=== PATIENT | male | born 1955 | race African-American/Black ===

== ENCOUNTER 2020-12-25 14:22 | Observation (INO) | payer MEDICARE, MEDICAID, SELFPAY ==
[~2020-12-25] VITALS: Ht 170.2 cm; Wt 57.6 kg
--- NOTE | 2020-12-25 14:22 | NUR ---
Patient BIBA BLS, transferred to bed 9. RN evaluating the patient at bedside.
--- NOTE | 2020-12-25 14:28 | NUR ---
RECIEVED IN BED 9, PATIENT BROUGHT IN BY EMS, IV ACCESS OBTAINED ON ARRIVAL, LABS DRAWN AND LABELED. PLACED ON ASSISTANT CHIEF NURSING OFFICER SHOWING SINUS RHYTHM, VS STABLE AT THIS TIME. PATIENT IS CACHECTIC, SKIN DRY AND SCALING, BUT INTACT. PATIENT IS QUIETLY VERBAL, STATES [place] FAMILY OF 5. PATIENT ENDORSES DIABETES, NO MEDICAL CARE, BS PER MEDIC RESULT IS TOO HIGH TO READ. ON FURTHER ASSESSMENT, BREATH SOUNDS ARE CLEAR, UNLABORED, RATE IS 12. ABDOMEN IS FLAT, FIRM TO TOUCH, ACTIVE BOWEL SOUNDS X 4. MAKES EYE CONTACT BUT QUICKLY AVERTS EYES. DIRECTOR OF HEALTH EDUCATION AND PUSHES ARE PRESENT BUT MINIMAL EFFORT. HYGIENE WNL FOR HOMELESS STATE. PATIENT DOES NOT RECALL LAST TIME HE ATE, C/O ABDOMINAL PAIN TODAY.
[2020-12-25 14:36] VITALS: BP 116/79
--- NOTE | 2020-12-25 14:45 | NUR ---
labs collected and sent to lab
[2020-12-25] MEDS ORDERED: NACL 0.9% 500 ML IV ONE (15:15)
[2020-12-25 15:30] LABS: BASOPHILS % (AUTO) 0.6 % (0.0-2.0); EOSINOPHILS # (AUTO) 0.1 K/uL (0-0.4); EOSINOPHILS % (AUTO) 1.5 % (0.0-4.0); HEMATOCRIT 42.5 % (36-52); HEMOGLOBIN 13.7 g/dL (12.0-18.0); LYMPHOCYTES # (AUTO) 0.4 K/uL (2.0-11.5); LYMPHOCYTES % (AUTO) 8.3 % (20.5-51.1); MEAN CORPUSCULAR HEMOGLOBIN 31 pg (27-31); MEAN CORPUSCULAR HGB CONC 32 g/dL (33-37); MEAN CORPUSCULAR VOLUME 96.6 fL (80-94); MONOCYTES # (AUTO) 0.3 K/uL (0.8-1.0); NEUTROPHILS # (AUTO) 4.1 K/uL (1.8-7.7); NEUTROPHILS % (AUTO) 82.6 % (42.2-75.2); PLATELET COUNT (AUTO) 250 K/uL (140-450); RED CELL DISTRIBUTION WIDTH 14.4 % (11.6-13.7)
--- NOTE | 2020-12-25 15:53 | NUR ---
rad at bedside
--- NOTE | 2020-12-25 15:57 | NUR ---
ekg being performed at bedside
--- NOTE | 2020-12-25 16:28 | NUR ---
called lab to find out why cmp is not inputed yet
[2020-12-25 16:38] LABS: ACETONE, SERUM NEGATIVE (NEGATIVE)
[2020-12-25 16:45] LABS: ALBUMIN 3.1 g/dL (3.4-5.0); ANION GAP 14.4 (8-16); ASPARTATE AMINOTRANSFERASE 29 U/L (15-37); CARBON DIOXIDE 27.5 mmol/L (21-32); CHLORIDE 97 mmol/L (98-107); CREATININE 1.5 mg/dL (0.6-1.3); GFR ARICAN-AMERICAN 60 mL/min (>90); POTASSIUM 4.9 mmol/L (3.5-5.1); SODIUM SERUM 134 mmol/L (136-145); TOTAL BILIRUBIN 0.5 mg/dL (0.0-1.0); UREA NITROGEN, BLOOD 24 mg/dL (7-18)
[2020-12-25 16:48] LABS: GLUCOSE 777 mg/dL (74-106)
[2020-12-25] MEDS ORDERED: INSULIN REGULAR, HUMAN 100 UNIT/ML VIAL IVP ONE ×2 (16:50→18:55)
[2020-12-25] MEDS ORDERED: NACL 0.9% 1,000 ML IV ONE (17:10)
--- NOTE | 2020-12-25 17:14 | NUR ---
PT GIVEN SANDWICH, SUGAR FREE JELLO, AND WATER AFTER ERMD APPROVAL.
--- NOTE | 2020-12-25 18:06 | NUR ---
LAB AT BEDSIDE
[2020-12-25] MEDS ORDERED: ASPIRIN 81 MG TAB.CHEW PO ONE (19:10)
--- NOTE | 2020-12-25 19:20 | NUR ---
report given to LISETH Carter. Transfer of care at this time.
--- NOTE | 2020-12-25 19:27 | NUR ---
Report received from LISETH Nixon. Transfer of care at this time.
--- NOTE | 2020-12-25 19:53 | NUR ---
Re-checked blood sugar prior to giving insulin. BS via fingerstick 533.
[2020-12-25] MEDS ORDERED: ACETAMINOPHEN 325 MG TAB PO PRN (20:20)
[2020-12-25] MEDS ORDERED: MAG SULF 2000 MG/WATER PREMIX 50 ML IV PRN (20:20)
[2020-12-25] MEDS: NACL 0.9% 1,000 ML IV SCH (20:20)
[2020-12-25] MEDS ORDERED: ONDANSETRON 4 MG/2 ML VIAL IVP PRN (20:20)
[2020-12-25] MEDS ORDERED: MAGNESIUM OXIDE 400 MG TAB PO PRN (20:20)
[2020-12-25] MEDS ORDERED: POTASSIUM CHLORIDE 10 MEQ TABER PO PRN (20:20)
[2020-12-25] MEDS ORDERED: KCL 20 MEQ/WATER INJ PREMIX 200 ML IV PRN (20:20)
[2020-12-25] MEDS ORDERED: DEXTROSE 50% 50 ML SYR IVP PRN (20:20)
[2020-12-25] MEDS: BLOOD GLUCOSE MONITORING 1 DEV DEV FS SCH (21:00)
--- NOTE | 2020-12-25 21:04 | NUR ---
RAPID COVID TEST (NELL) SENT TO LAB
--- NOTE | 2020-12-25 21:45 | NUR ---
Blood sugar checked. bs=86
--- NOTE | 2020-12-25 22:07 | NUR ---
Report given to María
--- NOTE | 2020-12-25 23:10 | NUR ---
RECEIVED PT AAOX4 FROM ER / LEATHA . NID - O2 SAT WNL - RA . ON TELE MONITOR . IV CANNULA DISLOGED / OUT - ER NURSE WILL RE INSERT IT . WALKS TO BED W/ 1 PERSON ASSIST - FALL RISK . SAFETY MEASURES IN PLACE URINAL / CALL LIGHT WITHIN REACH . POC DISCUSSED AND VERBALIZE UNDERSTANDING . WILL CONT. TO MONITOR
--- NOTE | 2020-12-25 23:50 | NUR ---
Patient will be admitted to care of Dr. Ramos. Admited to Tele unit. Will go to room 120-A. Belongings list completed. Report to María CHILDERS.
--- NOTE | 2020-12-26 | NUR ---
ACCU CHECK - 201 . NO S/SX OF ACUTE DISTRESS NOTED - SR ON TELE MONITOR .
--- NOTE | 2020-12-26 02:00 | NUR ---
WATCHING TV NO COMPLAIN MADE .
[2020-12-26 04:00] VITALS: BP 140/90
[2020-12-26] MEDS: INSULIN LISPRO SLIDING SCALE 100 UNITS/ML VIAL SUBQ PRN ×2 (06:27→11:38)
[2020-12-26] MEDS: BLOOD GLUCOSE MONITORING 1 DEV DEV FS SCH ×4 (06:27→21:32)
--- NOTE | 2020-12-26 06:29 | NUR ---
ACCU CHECK 587 - 10 U HUMALOG / SQ GIVEN - WILL REFER TO DR COCHRAN . NO COMPLAIN MADE.
--- NOTE | 2020-12-26 07:10 | NUR ---
PAGED DR Kaden COCHRAN ABOUT ACCU CHECK 587 - WILL ENDORSE .
--- NOTE | 2020-12-26 07:30 | NUR ---
ENDORSED - PT - STABLE . I TOLD TO AM NURSE SHE HAVE TO WAIT THE CALL BACK OF DR Kaden COCHRAN FOR ACCU CHECK [address] Kaden RODRIGUEZ AND CHERRY IS HIGH - NO URINE EXAM ORDERED . Addendum: 12/26/20 at 0757 by María Morris RN INFORM CHARGE NURSE JERROD - TROPONIN - AND THE [id number] RPT BY DR. COCHRAN IS 8 :20 PM - NO CARDIO CONSULT YET .
[2020-12-26 08:00] VITALS: BP_SYST 135; BP_SYST 144; BP_DIAS 87; BP_DIAS 96
[2020-12-26 08:00] LABS: BASOPHILS # (AUTO) 0.1 K/uL (0.00-0.22); BASOPHILS % (AUTO) 1.5 % (0.0-2.0); EOSINOPHILS # (AUTO) 0.4 K/uL (0-0.4); EOSINOPHILS % (AUTO) 9.5 % (0.0-4.0); HEMATOCRIT 35.9 % (36-52); HEMOGLOBIN 11.9 g/dL (12.0-18.0); LYMPHOCYTES # (AUTO) 0.6 K/uL (2.0-11.5); MEAN CORPUSCULAR HEMOGLOBIN 32 pg (27-31); MEAN CORPUSCULAR HGB CONC 33 g/dL (33-37); MEAN CORPUSCULAR VOLUME 94.9 fL (80-94); MONOCYTES # (AUTO) 0.3 K/uL (0.8-1.0); MONOCYTES % (AUTO) 7.9 % (1.7-9.3); NEUTROPHILS % (AUTO) 68.1 % (42.2-75.2); PLATELET COUNT (AUTO) 207 K/uL (140-450); RED BLOOD CELL COUNT(AUTO) 3.79 MIL/uL (4.20-6.10); RED CELL DISTRIBUTION WIDTH 14.2 % (11.6-13.7); WHITE BLOOD COUNT (AUTO) 4.4 K/uL (4.8-10.8)
[2020-12-26 08:02] LABS: MAGNESIUM 1.7 mg/dL (1.8-2.4)
[2020-12-26 08:03] LABS: ANION GAP 11.9 (8-16); CARBON DIOXIDE 23.7 mmol/L (21-32); CREATININE 1.4 mg/dL (0.6-1.3); POTASSIUM 4.6 mmol/L (3.5-5.1)
--- NOTE | 2020-12-26 08:19 | NUR ---
PATIENT HAS BEEN SCREENED AND CATEGORIZED LOW NUTRITION RISK. PATIENT WILL BE SEEN WITHIN 7 DAYS OF ADMISSION. 01/01/[address]
--- NOTE | 2020-12-26 08:25 | NUR ---
assessment complete plan of care reviewed. dr craig messaged for abnormal labs awaiting a return call, will continue to monitor and assess
[2020-12-26] MEDS: NACL 0.9% 1,000 ML IV SCH ×2 (09:19→21:35)
[2020-12-26] MEDS ORDERED: LORazepam 2 MG/ML VIAL IVP PRN (09:20)
[2020-12-26] MEDS: ENOXAPARIN 40 MG/0.4 ML SYR SUBQ SCH (09:21)
--- NOTE | 2020-12-26 11:44 | NUR ---
BLOOD GLUCOSE 487MG/DL MD MESSAGED AWAITING A RETURN CALL 10 UNITS GIVEN SQ CALL LIGHT IN REACH WILL CONTINUE TO MONITOR AND ASSESS
[2020-12-26 12:00] VITALS: BP 141/83
[2020-12-26] MEDS ORDERED: INSULIN LANTUS 100 UNITS/ML 10 ML VIAL SUBQ SCH (13:00)
--- NOTE | 2020-12-26 13:01 | NUR ---
CALLED BACK WITH NEW ORDERS TO GIVE FIRST DOSE OF LANTUS NOW, PHARMACY MADE AWRE NOTED AND WILL CARRY OUT, WILL CONTINUE TO MONITOR AND ASSESS
[2020-12-26 16:22] VITALS: BP 128/75
--- NOTE | 2020-12-26 17:47 | NUR ---
NO SIGNIFICANT CHANGES NOTED AT THIS TIME ALL NEEDS ANTICIPATED AND MET BY STAFF NO ACUTE DISTRESS NOTED AT THIS TIEM
[2020-12-26 20:00] VITALS: BP 129/78
[2020-12-26] MEDS: ZOLPIDEM 5 MG TAB PO PRN (21:34)
--- NOTE | 2020-12-26 22:16 | NUR ---
Assumed care. A/O x4. Presently blood glucose = 452. Dr. Watts contacted to be notified. Had communication with the exchange service. Awaiting call return.
[2020-12-26] MEDS ORDERED: INSULIN LISPRO 100 UNITS/ML VIAL SUBQ SCH (22:55)
[2020-12-27] VITALS: BP 134/85
--- NOTE | 2020-12-27 03:42 | NUR ---
A/O x 4. Each time he wakes up he is hungry. He keeps on asking for snacks here and there. Will continue to monitor.
[2020-12-27 04:00] VITALS: BP 116/75
[2020-12-27] MEDS: INSULIN LISPRO SLIDING SCALE 100 UNITS/ML VIAL SUBQ PRN ×4 (07:10→22:07)
[2020-12-27] MEDS: BLOOD GLUCOSE MONITORING 1 DEV DEV FS SCH ×4 (07:14→21:00)
[2020-12-27 07:45] LABS: ANION GAP 9.3 (8-16); CREATININE 1.1 mg/dL (0.6-1.3); POTASSIUM 4.3 mmol/L (3.5-5.1)
[2020-12-27 07:46] LABS: BASOPHILS # (AUTO) 0.1 K/uL (0.00-0.22); BASOPHILS % (AUTO) 1.3 % (0.0-2.0); EOSINOPHILS # (AUTO) 0.4 K/uL (0-0.4); HEMATOCRIT 31.3 % (36-52); HEMOGLOBIN 10.6 g/dL (12.0-18.0); LYMPHOCYTES # (AUTO) 0.9 K/uL (2.0-11.5); LYMPHOCYTES % (AUTO) 18.1 % (20.5-51.1); MEAN CORPUSCULAR HEMOGLOBIN 32 pg (27-31); MEAN CORPUSCULAR HGB CONC 34 g/dL (33-37); MEAN CORPUSCULAR VOLUME 94.9 fL (80-94); MONOCYTES # (AUTO) 0.4 K/uL (0.8-1.0); NEUTROPHILS # (AUTO) 3.1 K/uL (1.8-7.7); NEUTROPHILS % (AUTO) 63.6 % (42.2-75.2); PLATELET COUNT (AUTO) 178 K/uL (140-450); RED CELL DISTRIBUTION WIDTH 14.3 % (11.6-13.7); WHITE BLOOD COUNT (AUTO) 4.9 K/uL (4.8-10.8)
[2020-12-27 08:00] VITALS: BP 125/73
[2020-12-27] MEDS ORDERED: INSULIN LANTUS 100 UNITS/ML 10 ML VIAL SUBQ SCH (09:00)
[2020-12-27] MEDS: ENOXAPARIN 40 MG/0.4 ML SYR SUBQ SCH (09:37)
[2020-12-27] MEDS: NACL 0.9% 1,000 ML IV SCH ×3 (10:28→22:37)
[2020-12-27 12:00] VITALS: BP 143/84
--- NOTE | 2020-12-27 12:38 | NUR ---
[facility] REFERRAL FOR UNCONTROLLED DIABETES MELLITUS RECEIVED ON 12/27/20. PATIENT HAS BEEN RE-SCREENED BY RD PER HOSPITAL POLICY CRITERIA. PATIENT HAS BEEN RE-CATEGORIZED MODERATE NUTRITION RISK. PATIENT WILL BE SEEN WITHIN 3-5 DAYS OF ADMISSION. 12/28/20 - 12/30/20 JOVITA PERRIN MBA, RD
[2020-12-27 16:00] VITALS: BP 138/76
--- NOTE | 2020-12-27 18:26 | NUR ---
PATIENT EDUCATION PROVIDED CONCERNING DIET AND DIABETES. PATIENT CONTINUOUSLY ASKING FOR SNACKS DESPITE DIET EDUCATION. PATIENT NEEDS FREQUENT REINFORCEMENT.
--- NOTE | 2020-12-27 19:41 | NUR ---
Assumed care. A/O x 4. Has just had dinner, but he wants a snack already. We shall be giving him something in a little while . IV fluids infusing at 80mls/hr. Uses a urinal. Bed in low position. Call light within reach.
[2020-12-27 20:00] VITALS: BP 133/78
[2020-12-27] MEDS: ZOLPIDEM 5 MG TAB PO PRN (22:06)
[2020-12-28] VITALS: BP 114/59
[2020-12-28 04:00] VITALS: BP 156/59
[2020-12-28] MEDS: BLOOD GLUCOSE MONITORING 1 DEV DEV FS SCH ×3 (06:40→16:55)
[2020-12-28] MEDS: INSULIN LISPRO SLIDING SCALE 100 UNITS/ML VIAL SUBQ PRN ×3 (06:41→16:56)
[2020-12-28 07:03] LABS: BASOPHILS % (AUTO) 0.7 % (0.0-2.0); EOSINOPHILS # (AUTO) 0.3 K/uL (0-0.4); EOSINOPHILS % (AUTO) 8.1 % (0.0-4.0); HEMATOCRIT 33.4 % (36-52); HEMOGLOBIN 11.1 g/dL (12.0-18.0); LYMPHOCYTES # (AUTO) 0.8 K/uL (2.0-11.5); LYMPHOCYTES % (AUTO) 20.2 % (20.5-51.1); MEAN CORPUSCULAR HEMOGLOBIN 31 pg (27-31); MEAN CORPUSCULAR HGB CONC 33 g/dL (33-37); MEAN CORPUSCULAR VOLUME 94.1 fL (80-94); MONOCYTES # (AUTO) 0.5 K/uL (0.8-1.0); MONOCYTES % (AUTO) 13.4 % (1.7-9.3); NEUTROPHILS # (AUTO) 2.3 K/uL (1.8-7.7); NEUTROPHILS % (AUTO) 57.6 % (42.2-75.2); PLATELET COUNT (AUTO) 179 K/uL (140-450); RED BLOOD CELL COUNT(AUTO) 3.55 MIL/uL (4.20-6.10); RED CELL DISTRIBUTION WIDTH 14.2 % (11.6-13.7)
[2020-12-28 07:08] LABS: ANION GAP 7.8 (8-16); CARBON DIOXIDE 28.1 mmol/L (21-32); CREATININE 0.9 mg/dL (0.6-1.3); POTASSIUM 3.9 mmol/L (3.5-5.1)
--- NOTE | 2020-12-28 07:37 | NUR ---
Has done well through the night . In no acute distress. Save asks for food each time he wakes/opens his eyes. Denies pain. Endorsed to Am RN
--- NOTE | 2020-12-28 07:39 | NUR ---
Has done well through the night . In no acute distress. Denies pain. Save at 0400 BP elevated. We had no PRNs. MD contacted. Received new order. Reassessed BP = 161/68, HR = 95. Endorsed to Am RN
[2020-12-28 08:00] VITALS: BP 138/87
[2020-12-28] MEDS ORDERED: MULTIVITAMIN/MINERALS 1 TAB PO SCH (09:00)
[2020-12-28] MEDS ORDERED: FOLIC ACID 1 MG TAB PO SCH (09:00)
[2020-12-28] MEDS ORDERED: INSULIN LANTUS 100 UNITS/ML 10 ML VIAL SUBQ SCH (09:00)
[2020-12-28] MEDS ORDERED: THIAMINE 100 MG TAB PO SCH (09:00)
[2020-12-28] MEDS: ENOXAPARIN 40 MG/0.4 ML SYR SUBQ SCH (09:01)
--- NOTE | 2020-12-28 11:07 | NUR ---
SOCIAL WORK NOTE: Patient's Orientation Person Situation Place Time Information Provided By PATIENT Comments SW COMPLETED ASSESSMENT WITH PATIENT AT BEDSIDE. Bail Bond Agent, Realtionship and Phone Number N/A Healthcare Power of Landscape Drafter No Does Patient Have a POLST No Identifying Problems No Social Work Triggers Is A Social Work Consult Needed No Mandate Report Filed No Explanation Of Identifying Problems PATIENT IS A 65-YEAR-OLD MALE ADMITTED FOR SYNCOPE AND DM. PATIENT HAS PMHX OF DIABETES AND IDDM. PATIENT STATED THAT HE WAS HOMELESS. SW PROVIDED HOMELESS RESOURCES. PATIENT STATED THAT HE RECEIVES $900 FROM [employer]. PATIENT STATED HE WOULD COORDINATE LIVING ARRANGEMENTS HIMSELF USING RESOURCES. Admitted From HOMELESS Pre-Admission Level Of Functioning Status Independent/Ambulatory Prior Resources/Services Used In Last 12 Months Homeless Resources Prior Resources/Service Comments HOMELESS RESOURCES WERE PROVIDED TO PATIENT. Prior DME No Prior DME Used Dialysis Comments N/A Living Situation Homeless Patient Had Caregiver No Home Support No Caregiver Issues Financial Issues No Known Financial Issue Referral To The Financial Counselor Needed No Factors/Needs Custodial/Homeless Explanation And Or Other Factors Affecting/Possible DC Needs PATIENT STATED HE WOULD COORDINATE LIVING ARRANGEMENTS HIMSELF. Pt/Rep Participated In Discharge Plan Yes Patient/Family Agress With Discharge Plan Yes Discharge Plan Comments TENTATIVE DISCHARGE PLAN IS FOR PATIENT TO COORDINATE LIVING ARRANGEMENTS AFTER DISCHARGE. DC Plan Status Initiated
[2020-12-28 12:00] VITALS: BP 150/84
[2020-12-28] MEDS: NACL 0.9% 1,000 ML IV SCH (15:55)
[2020-12-28 16:00] VITALS: BP 157/71
[2020-12-28] MEDS ORDERED: ASPI81CT95 PO (16:47)
[2020-12-28] MEDS ORDERED: GLIP2.5T2 PO (16:47)
[2020-12-28 17:58] VITALS: BP 142/65
--- NOTE | 2020-12-31 19:44 | NUR ---
LATE ENTRY--- 1ST NS BOLUS ENDED AT 1615, 2ND NS BOLUS ENDED AT 1820, 80CC NS FLUIDS ENDED AT 2205.
== END 2020-12-28 19:22 | disposition home or self-care (01) ==
LOC: MED 14:22 → MTU 20:25 → OBSVTOIN 20:25 → INTOOBSV 20:25 → MTU 22:33
PROVIDERS: ADMIT Internal Medicine; ATTEND Internal Medicine
DX: E11.65 Type 2 diabetes mellitus with hyperglycemia (principal); Z20.822 Contact with and (suspected) exposure to COVID-19; R55 Syncope and collapse; N17.9 Acute kidney failure, unspecified; E86.0 Dehydration; F10.10 Alcohol abuse, uncomplicated; E46 Unspecified protein-calorie malnutrition; E83.42 Hypomagnesemia; I10 Essential (primary) hypertension; F17.210 Nicotine dependence, cigarettes, uncomplicated; Z59.0 Homelessness; Z79.4 Long term (current) use of insulin; Z79.899 Other long term (current) drug therapy
CPT/HCPCS: 36415; 71045; 80048; 80053; 80061; 82009; 82947; 82948; 83036; 83735; 84484; 85025; 87040; 87081; 87426; 93005; 96361; 96365; 96366; 96372; 96375; 96376; 99291; G0378; J1650; J1815; J3475; J7030